=== PATIENT | male | born 1960 | race Caucasian/White ===

== ENCOUNTER 2017-10-05 17:49 | Emergency (ER) | payer SELFPAY ==
[~2017-10-05] VITALS: Ht 172.7 cm; Wt 90.7 kg
[2017-10-05 18:09] VITALS: Ht 172.7 cm; Wt 90.7 kg
[2017-10-05 19:18] VITALS: BP 128/76
== END 2017-10-05 19:19 | disposition home or self-care (01) ==
LOC: ED 17:49
DX: M79.1 Myalgia (principal); E11.9 Type 2 diabetes mellitus without complications
CPT/HCPCS: J1885